=== PATIENT | female | born 1975 | race Caucasian/White ===

== ENCOUNTER 2022-01-11 18:19 | Emergency (ER) | payer MEDICAID ==
[~2022-01-11] VITALS: Ht 167.6 cm; Wt 61.0 kg
[2022-01-11 18:22] VITALS: BP 122/76
== END 2022-01-12 00:05 | disposition left against medical advice (07) ==
LOC: ER 18:19
DX: Z53.21 Procedure and treatment not carried out due to patient leaving prior to being seen by health care provider (principal)
CPT/HCPCS: 71045; 93005